=== PATIENT | male | born 1950 | race Caucasian/White ===

== ENCOUNTER 2020-10-27 16:40 | Observation (INO) | payer OTHER ==
--- OUTSIDE RECORDS SUMMARY | 2020-10-27 16:43 | XMS REPORT | Continuity of Care Document ---
:1950 Author Organization [facility] t Address [address] [place] [address] Care Team Providers Name Role Phone Erika MEDINA Primary Care Physician Erika MEDINA Attending Clinician Payers Payer Name Policy Type Policy Number Effective Date Expiration Date S ource Problems This patient has no known problems. Allergies, Adverse Reactions, Alerts Allergy Allergy Status Severity Reaction(s) Onset Inactive Treating Comm ents Source Name Type Date Date Clinician prazosin DA Active SV 2017-07 [facility] 1-20 [place] 00:00: d 00 [facility] Prazosin Propensi Active 2016-07 [place] to 0-16 [facility] adverse 00:00: st reaction 00 s to drug Family History Family Member Diagnosis Comments Start Date Stop Date Source Natural father Stroke [facility] Natural father Heart attack [facility] Natural mother Arthritis [facility] Natural mother Cancer [facility] Natural mother Heart attack [facility] Natural mother Hyperlipidemia [place] [facility] Natural mother Stroke [facility] Natural brother Heart attack [facility] Natural brother Leukemia [facility] ethodist Social History Social Habit Start Date Stop Date Quantity Comments Source Tobacco use and 2017-05-13 2017-05-13 Never used Dan ethodist exposure 00:00:00 00:00:00 Alcohol intake 2017-05-13 2017-05-13 Current drinker Rames[facility] 00:00:00 00:00:00 of alcohol (finding) Sex [birth year] Sy Nolasco ethodist 00:00:00 00:00:00 Smoking Status Start Date Stop Date Source Never smoker Sy Beckford t Medications Ordered Filled Start Stop Current Ordering Indication Dosage Frequency Signature Comments Components Source Medication Medication Date Date Medication? Clinician (SIG) Name Name finasteride Yes TK 1 T PO H nataliia (PROSCAR) 5 03-22 D [facility] mg tablet 00:00: st 00 omeprazole Yes TK 1 C PO Ho manuela (PriLOSEC) 03-22 QD. GEF Method i 20 MG 00:00: PRILOSEC. st capsule 00 amLODIPine Yes TK 1 T PO Ho griffin (NORVASC) 03-18 QD [facility] 10 mg 00:00: st tablet 00 valsartan Yes TK 1 T PO Harrison schmitd (DIOVAN) 03-18 D [facility] 320 MG 00:00: st tablet 00 Procedures Procedure Date / Time Performed Performing Clinician [facility] e US VASCULAR SCREENING 2020-03-14 11:30:00 Trung James HEART SCAN PLUS CT HEART SCAN PLUS W 2020-03-14 10:02:02 Trung James PHYSICIAN ORDER Plan of Care Planned Activity Planned Date Details Comments Source Future Scheduled 2021 INFLUENZA VACCINE Jamel quintero [facility] 00:00:00 [code = INFLUENZA VACCINE] Future Scheduled 2014 65+ PNEUMOCOCCAL Sy [facility] Test 00:00:00 VACCINE (1 of 1 - PPSV23) [code = 65+ PNEUMOCOCCAL VACCINE (1 of 1 - PPSV23)] Future Scheduled 1999 COLONOSCOPY SCREENING Ho manuela [facility] 00:00:00 [code = COLONOSCOPY SCREENING] Future Scheduled 1999 SHINGLES VACCINES (#1) H nataliia [facility] 00:00:00 [code = SHINGLES VACCINES (#1)] Future Scheduled 1967 Hepatitis C screening Ho uston [facility] Test 00:00:00 (procedure) [code = 148865125] Future Scheduled 1965 COVID-19 VACCINE (1) Harrison ston [facility] Test 00:00:00 [code = COVID-19 VACCINE (1)] Encounters Start End Encounter Admission Attending Care Care Encounter Source Date/Time Date/Time Type Type Clinicians Facility Department ID 2020-03-14 2020-03-14 Outpatient [facility] [id number] [address] [place] [address] 00:00:00 00:00:00 TRUNG [address] 2020-03-14 2020-03-14 Outpatient [facility] [id number] [place] [address] 00:00:00 00:00:00 TRUNG [address] Results Test Description Test Time Test Comments Results Result Sourc e Comments Pv vascular Interface, Radiology Harrisonana schmidt screening heart 3 Results In - Methodi st scan plus (self 12:25:00 03/14/2020 12:25 PM pay) CDT Vascular Diagnostic Laboratory Screening Report [address] [place] [address] Pat.Name: MADINA CASE Pat.ID: [id number] .Date: 03/14/2020 Refer.MD: TRUNG JAMES MD Exam Time: 10:03:00 AM Study Type:Screening Age: 8 1950,70Y Sex: MALE Sonogrphr: ADEBAYO Munoz Pat. Stat.:Outpatient Tape Vol: FE, Echo Event ID:[id number] Order ID: [id number] Reason for Study:Screening Procedures: Ankle/brachial pressures, Colorflow, Grayscale/2D, Pulsedwave Doppler S UMMARY: V ascular Screening ResultsScreening results are brief snapshots designed to detect functionalabnormal findings of carotid artery disease, abdominal aorticaneurysms (AAA), and peripheral arterial disease (PAD). Please Note: Screening results do not replace a complete vascularexamination.Ca rotid ArteryRight Internal Carotid Artery (X) Normal: No evidence of carotid artery disease. Left Internal Carotid Artery (X) Abnormal: Plaque present but no stenosis.Abdominal Aorta(X) Normal: No evidence of aneurysmal dilatation (less than 3cm).Ankle/Brachial Index(X) Normal: No evidence of peripheral arterial disease (PAD).Recommendations Your results are ABNORMAL. Please take these results to yourphysician and discuss them in further detail. If you do not have a physician you can call our [facility] to schedule an appointment at [phone].--------- -----FINDINGS:-------- ------Signed 03/14/2020 12:25 Sudhir Vail MD, RPVI SURG 4 13:07:00 ----RUN DATE: 06/14/18 [facility] - LAB *LIVE* PAGE 1 RUN TIME: 1307 Specimen Inquiry RUN USER: INTERFACE ----PATIENT: MADINA CASE LOC: [place] U #: [id number] AGE/SX: 68/M ROOM: [facility] RE06/13/18REG DR: Gopi Barnes MD : 48 BED: 1 DIS: STATUS: ADM IN TLOC: ---- SPEC #: [id number] RECD: 06/13/18 STATUS: VANESSA REMaddy #: [id number] FATMATA: 06/13/[address]: Gopi Barnes MD ENTERED: 06/13/18 SP TYPE: SURG OTHR DR: Trung James MD ORDERED: SURG PATH LVL 4 [place] [id number] [facility] [address] [place] [address] [email or web address] Trung James MD [address] [place] [id number] HISTOLOGY: TISSUE ID BLK PCS CHINO LEV PROCEDURE DISPOSITION ____ ___ ___ ___ PROSTATE, NOS A 1-10 1 PROCEDURES: SURG PATH LVL 4 (06/13/18) TISSUES: A. PROSTATE, NOS - PROSTATE CHIPS CLINICAL HISTORY BENIGN PROSTATIC HYPERPLASIA-N40.1 CPT CODES CPT CODE(S): 04186 , , , , , , FINAL DIAGNOSIS Prostate chips, TUR: BENIGN NODULAR HYPERPLASIA GROSS DESCRIPTION Prostate chips. Received in formalin are multiple irregular fragments of mcgrath-brown fibrous tissue, 12.5 x 11.0 x 1.5 cm and weighs 38.5 grams. Cash Accountant sections submitted labeled A1 - A17. /ba/pdb Grossing performed at [facility] Pathology, [address] [place] [address], [address], CONTINUED ON NEXT PAGE ----RUN DATE: 06/14/18 [facility] - LAB *LIVE* PAGE 2 RUN TIME: 1307 Specimen Inquiry RUN USER: INTERFACE ----SPEC #: [id number] PATIENT: MADINA CASE #[id number] (Continued) GROSS DESCRIPTION (Continued) [place], [place] [address]. Hardware Trainer: Des Pena M.D. MICROSCOPIC DESCRIPTION Prostate chips. Sections demonstrate a nodular proliferation of stromal tissue with cystic glands. Focal clusters of lymphocytes are seen throughout the stroma. There is no evidence of malignancy. /cm ------- Signed SIGNATURE ON FILE Donita Jacobsen 06/14/18 1307 ---- END OF REPORT
--- NOTE | 2020-10-27 17:20 | EDPHYS ---
Physician Documentation [facility] Name: Mac Carreon Age: 70 yrs Sex: Male : 1950 Arrival Date: 10/27/2020 Time: 16:41 Bed 23 Private MD: Trung James V ED Physician Gregory Estrada HPI: 10/27 17:05 This 70 yrs old Male presents to ER via Ambulatory with complaints of Chest donald Pressure, Arm Pain. 17:05 The patient or guardian reports chest pain that is located primarily in the anterior donald chest wall, bilaterally. Onset: 1 day(s) ago. The pain radiates to the right arm. Associated signs and symptoms: The patient has no apparent associated signs or symptoms. The chest pain is described as burning, a pressure. Duration: The patient or guardian reports multiple episodes, that are intermittent. Modifying factors: The symptoms are alleviated by application of supplemental oxygen, remaining still, the symptoms are aggravated by exertion. Severity of pain: At its worst the pain was moderate in the emergency department the pain has improved mildly. Historical: - Allergies: 16:47 Minipress; jd3 - Home Meds: 16:47 losartan oral oral [Active]; atorvastatin oral oral [Active]; amlodipine oral [Active]; jd3 - PMHx: 16:47 Hypertension; jd3 - PSHx: 16:47 parathyroid removal; TURP; Tonsillectomy; jd3 - Immunization history:: Adult Immunizations up to date. - Social history:: Smoking status: unknown. - Family history:: not pertinent. ROS: 17:05 Constitutional: Negative for fever, chills, and weight loss, Eyes: Negative for injury, donald pain, redness, and discharge, ENT: Negative for injury, pain, and discharge, Neck: Negative for injury, pain, and swelling, Respiratory: Negative for shortness of breath, cough, wheezing, and pleuritic chest pain, Abdomen/GI: Negative for abdominal pain, nausea, vomiting, diarrhea, and constipation, Back: Negative for injury and pain, : Negative for injury, bleeding, discharge, and swelling, MS/Extremity: Negative for injury and deformity, Skin: Negative for injury, rash, and discoloration, Neuro: Negative for headache, weakness, numbness, tingling, and seizure, Psych: Negative for depression, anxiety, suicide ideation, homicidal ideation, and hallucinations, Allergy/Immunology: Negative for hives, rash, and allergies, Endocrine: Negative for neck swelling, polydipsia, polyuria, polyphagia, and marked weight changes, Hematologic/Lymphatic: Negative for swollen nodes, abnormal bleeding, and unusual bruising. 17:05 Cardiovascular: Positive for chest pain, of the chest. Exam: 17:05 Constitutional: This is a well developed, well nourished patient who is awake, alert, donald and in no acute distress. Head/Face: Normocephalic, atraumatic. Eyes: Pupils equal round and reactive to light, extra-ocular motions intact. Lids and lashes normal. Conjunctiva and sclera are non-icteric and not injected. Cornea within normal limits. Periorbital areas with no swelling, redness, or edema. ENT: Nares patent. No nasal discharge, no septal abnormalities noted. Tympanic membranes are normal and external auditory canals are clear. Oropharynx with no redness, swelling, or masses, exudates, or evidence of obstruction, uvula midline. Mucous membranes moist. Neck: Trachea midline, no thyromegaly or masses palpated, and no cervical lymphadenopathy. Supple, full range of motion without nuchal rigidity, or vertebral point tenderness. No Meningismus. Chest/axilla: Normal chest wall appearance and motion. Nontender with no deformity. No lesions are appreciated. Cardiovascular: Regular rate and rhythm with a normal S1 and S2. No gallops, murmurs, or rubs. Normal PMI, no JVD. No pulse deficits. Respiratory: Lungs have equal breath sounds bilaterally, clear to auscultation and percussion. No rales, rhonchi or wheezes noted. No increased work of breathing, no retractions or nasal flaring. Abdomen/GI: Soft, non-tender, with normal bowel sounds. No distension or tympany. No guarding or rebound. No evidence of tenderness throughout. Back: No spinal tenderness. No costovertebral tenderness. Full range of motion. Male : Normal genitalia with no discharge or lesions. Skin: Warm, dry with normal turgor. Normal color with no rashes, no lesions, and no evidence of cellulitis. MS/ Extremity: Pulses equal, no cyanosis. Neurovascular intact. Full, normal range of motion. Neuro: Awake and alert, GCS 15, oriented to person, place, time, and situation. Cranial nerves II-XII grossly intact. Motor strength 5/5 in all extremities. Sensory grossly intact. Cerebellar exam normal. Normal gait. Psych: Awake, alert, with orientation to person, place and time. Behavior, mood, and affect are within normal limits. 17:17 ECG was reviewed by the Attending Physician. [facility] Vital Signs: 16:48 BP 187 / 91; Pulse 75; Resp 17 S; Temp 97.8(TE); Pulse Ox 99% on R/A; Weight 92.99 kg jd3 (R); Height 5 ft. 10 in. (177.80 cm) (R); Pain 5/10; 17:56 BP 174 / 81; Pulse 60; Resp 18 S; Pulse Ox 100% on R/A; ca1 18:56 BP 140 / 75; Pulse 58; Resp 20 S; Pulse Ox 100% on R/A; ca1 19:40 BP 143 / 78; Pulse 48; Resp 15; Pulse Ox 97% ; rr5 16:48 Body Mass Index 29.41 (92.99 kg, 177.80 cm) jd3 MDM: 16:50 Patient medically screened. donald 17:08 Differential diagnosis: abnormal EKG, acute myocardial infarction, anxiety, coronary donald artery disease congestive heart failure pancreatitis, pericarditis, stable angina, unstable angina. HEART Score: ECG: Non specific repolarization disturbance / LBTB / PM (1), Age: > or = 65 years (2), Risk Factors: > or = 3 Risk factors for atherosclerotic disease (2), [Hypercholesterolemia] [Hypertension] [+ Family HX] [Obesity] Troponin: < or = 1 x Normal Limit (0). The patient was given aspirin in the Emergency Department. The patient's deep vein thrombosis risk score was calculated as follows: Total Score: 0. This patient was found to be at low risk for a deep vein thrombosis by using the Well's assessment criteria. The patient's pulmonary embolism risk score was calculated as follows: Total Score: 0-2 points. This patient was found to be at low risk for a pulmonary embolism by using the Well's assessment criteria. ARTURO Risk Score: 1 - patient's age is greater or equal to 65 years, 1 - Three or more CAD risk factors, 1- Known CAD, 1 - ASA use in past 7 days, 1 - Recent [<24hrs] Severe Angina, TOTAL SCORE = 5. Data reviewed: vital signs, nurses notes, lab test result(s), EKG, radiologic studies, plain films. Data interpreted: bus driver/monitor: rate is 75 beats/min, rhythm is regular, Pulse oximetry: on room air is 99 %. Test interpretation: by ED physician or midlevel provider: ECG, plain radiologic studies. Counseling: I had a detailed discussion with the patient and/or guardian regarding: the historical points, exam findings, and any diagnostic results supporting the discharge/admit diagnosis, lab results, radiology results, the need for further work-up and treatment in the hospital. 10/27 17:05 Order name: Basic Metabolic Panel donald 10/27 17:05 Order name: CBC with Diff 10/27 17:05 Order name: LFT's; Complete Time: 17:53 donald 10/27 17:05 Order name: Magnesium; Complete Time: 17:53 donald 10/27 17:05 Order name: NT PRO-BNP; Complete Time: 17:53 donald 10/27 17:05 Order name: PT-INR; Complete Time: 20:52 donald 10/27 17:05 Order name: Troponin (emerg Dept Use Only); Complete Time: 17:53 donald 10/27 17:05 Order name: Lipase; Complete Time: 17:53 donald 10/27 17:05 Order name: Basic Metabolic Panel; Complete Time: 17:53 EDMS 10/27 17:05 Order name: CBC with Automated Diff; Complete Time: 20:52 EDMS 10/27 17:14 Order name: COVID-19 : Document "Date of Symptom Onset" if Symptomatic. ca1 10/27 17:33 Order name: Urine Dipstick--Ancillary (enter results); Complete Time: 17:53 eb 10/27 18:25 Order name: SARS-COV-2 RT PCR; Complete Time: 20:52 EDMS 10/27 17:05 Order name: XRAY Chest (1 view); Complete Time: 20:52 donald 10/27 17:05 Order name: EKG; Complete Time: 17:06 donald 10/27 17:05 Order name: Cardiac monitoring; Complete Time: 17:09 donald 10/27 17:05 Order name: EKG - Nurse/Tech; Complete Time: 17:09 donald 10/27 17:23 Order name: CONS Physician Consult [facility] 10/27 23:33 Order name: Troponin I [facility] 10/28 03:31 Order name: Troponin I [facility] 10/28 04:58 Order name: CBC with Automated Diff EDMT 10/28 05:19 Order name: Basic Metabolic Panel [facility] 10/27 17:05 Order name: IV Saline Lock; Complete Time: 17:09 [facility] 10/27 17:05 Order name: Labs collected and sent; Complete Time: 17:09 [facility] 10/27 17:05 Order name: O2 Per Protocol; Complete Time: 17:13 [facility] 10/27 17:05 Order name: O2 Sat Monitoring; Complete Time: 17:13 [facility] 10/27 17:05 Order name: Urine Dipstick-Ancillary (obtain specimen); Complete Time: 17:32 [facility] EC:17 Rate is 64 beats/min. Rhythm is regular. QRS [place] is Normal. [place] interval is normal. QRS donald interval is normal. QT interval is normal. No Q waves. T waves are Normal. ST Segment is depressed in leads I, aVL. Clinical impression: Cardiac ischemia. Interpreted by me. Reviewed by me. Administered Medications: 17:34 Drug: Aspirin Chewable Tablet 324 mg Route: PO; aa5 21:48 Follow up: Response: No adverse reaction rv 17:34 Drug: Pepcid (famotidine) 20 mg Route: IVP; Site: right antecubital; aa5 21:48 Follow up: Response: No adverse reaction rv 17:35 Drug: Lopressor (metoprolol TARTRATE) 50 mg Route: PO; aa5 21:48 Follow up: Response: No adverse reaction rv 17:35 Drug: Lovenox (enoxaparin) 1 mg/kg Route: Sub-Q; Site: right lower abdomen; aa5 21:48 Follow up: Response: No adverse reaction rv 17:35 Drug: PlaVIX (clopidogrel) 300 mg Route: PO; aa5 21:48 Follow up: Response: No adverse reaction rv 17:40 Not Given (Patient Refused): morphine 2 mg IVP once; (PAIN>8) RASS on ADMN: Combtv4, aa5 Very Agttd3, Agttd2, Rstlss1, AlertClm0, Drwsy-1, LtSdtn-2, ModSdtn-3, DpSdtn-4, UnArsble-5 x2 17:40 Not Given (Patient Refused): Zofran (Ondansetron) 4 mg IVP once; over 2 minutes aa5 Disposition: 10/27/20 17:20 Hospitalization ordered by Trung James for Observation. Preliminary diagnosis are Chest pain, unspecified, Angina pectoris, Essential (primary) hypertension. - Bed requested for [facility] ER HOLD. - Status is Observation. ss - Condition is Fair. - Problem is new. - Symptoms have improved. Signatures: Dispatcher [employer] EDMT Gregory Estrada MD MD cha Ballard, Brenda, RN RN bb Deirdre Sullivan RN RN aa5 Soni Thomas RN RN ss Saurabh Govea, HANNAH-C TIRE DEBEADER-Cla1 Mario Cruz RN RN jd3 Elvin Coyne RN rv Corrections: (The following items were deleted from the chart) 17:35 17:14 CORONAVIRUS ordered. EDMT EDMT 21:39 17:20 Hospitalization Ordered by Trung James MD for Observation. Preliminary diagnosis bb is Chest pain, unspecified; Angina pectoris; Essential (primary) hypertension. Bed requested for Telemetry/MedSurg (observation). Status is Observation. Condition is Fair. Problem is new. Symptoms have improved. [facility] 10/28 11:51 10/27 21:39 10/27/2020 17:20 Hospitalization Ordered by Trung James MD for ss Observation. Preliminary diagnosis is Chest pain, unspecified; Angina pectoris; Essential (primary) hypertension. Bed requested for [facility] ER HOLD. Status is Observation. Condition is Fair. Problem is new. Symptoms have improved. bb
--- NOTE | 2020-10-27 17:20 | ER ---
Nurse's Notes [facility] Name: Mac Carreon Age: 70 yrs Sex: Male : 1950 Arrival Date: 10/27/2020 Time: 16:41 Bed 23 Private MD: Trung James V Diagnosis: Chest pain, unspecified;Angina pectoris;Essential (primary) hypertension Presentation: 10/27 16:43 Chief complaint: Patient states: "I am wanting to get my heart looked up. I have been jd3 having chest pain and right arm pain since Wednesday.". Coronavirus screen: At this time, the client does not indicate any symptoms associated with coronavirus-19. Ebola Screen: Patient negative for fever greater than or equal to 101.5 degrees Fahrenheit, and additional compatible Ebola Virus Disease symptoms. Initial Sepsis Screen: Does the patient meet any 2 criteria? No. Patient's initial sepsis screen is negative. Does the patient have a suspected source of infection? No. Patient's initial sepsis screen is negative. Risk Assessment: Do you want to hurt yourself or someone else? Patient reports no desire to harm self or others. Onset of symptoms was October 25, 2020. 16:43 Method Of Arrival: Ambulatory j 16:43 Acuity: GRISEL 3 jd3 Historical: - Allergies: 16:47 Minipress; jd3 - Home Meds: 16:47 losartan oral oral [Active]; atorvastatin oral oral [Active]; amlodipine oral [Active]; jd3 - PMHx: 16:47 Hypertension; jd3 - PSHx: 16:47 parathyroid removal; TURP; Tonsillectomy; jd3 - Immunization history:: Adult Immunizations up to date. - Social history:: Smoking status: unknown. - Family history:: not pertinent. Screenin:00 Abuse screen: Denies threats or abuse. Denies injuries from another. Nutritional ca1 screening: No deficits noted. Tuberculosis screening: No symptoms or risk factors identified. Fall Risk IV access (20 points). Assessment: 17:00 General: Appears in no apparent distress. comfortable, Behavior is calm, cooperative, ca1 appropriate for age. Pain: Complains of pain in chest Pain radiates to left arm Pain currently is 6 out of 10 on a pain scale. Quality of pain is described as pressure, Pain began 2-3 days ago. Is intermittent. Neuro: Level of Consciousness is awake, alert, obeys commands, Oriented to person, place, time, situation. Cardiovascular: Heart tones S1 S2 present Capillary refill is > 3 seconds Patient's skin is warm and dry. Rhythm is sinus rhythm. Respiratory: Airway is patent Respiratory effort is even, unlabored, Respiratory pattern is regular, symmetrical, Breath sounds are clear bilaterally. Respiratory: Reports shortness of breath. GI: Abdomen is flat, non-distended, Bowel sounds present X 4 quads. Abd is soft and non tender X 4 quads. : No signs and/or symptoms were reported regarding the genitourinary system. : No signs and/or symptoms were reported regarding the genitourinary system. EENT: No signs and/or symptoms were reported regarding the EENT system. Derm: Skin is intact, is healthy with good turgor, Skin is pink, warm \\T\\ dry. Musculoskeletal: Circulation, motion, and sensation intact. Capillary refill < 3 seconds. 17:40 Reassessment: Patient is alert, oriented x 3, equal unlabored respirations, skin aa5 warm/dry/pink. Patient states feeling better. Pt refused morphine administration at this time, pt refused warm blanket. Pt appears comfortable sitting up in bed. Call barton within reach. . 18:56 Reassessment: Patient appears in no apparent distress at this time. ca1 Vital Signs: 16:48 BP 187 / 91; Pulse 75; Resp 17 S; Temp 97.8(TE); Pulse Ox 99% on R/A; Weight 92.99 kg jd3 (R); Height 5 ft. 10 in. (177.80 cm) (R); Pain 5/10; 17:56 BP 174 / 81; Pulse 60; Resp 18 S; Pulse Ox 100% on R/A; ca1 18:56 BP 140 / 75; Pulse 58; Resp 20 S; Pulse Ox 100% on R/A; ca1 19:40 BP 143 / 78; Pulse 48; Resp 15; Pulse Ox 97% ; rr5 16:48 Body Mass Index 29.41 (92.99 kg, 177.80 cm) jd3 ED Course: 16:41 Patient arrived in ED. as 16:41 Trung James MD is Private Physician. as 16:45 Triage completed. jd3 16:45 Gregory Estrada MD is Attending Physician. donald 16:48 Arm band placed on. jd3 16:51 Rozina Esquivel, RN is Primary Nurse. ca1 17:08 CBC with Automated Diff Sent. mh5 17:09 Basic Metabolic Panel Sent. mh5 17:09 Lipase Sent. mh5 17:09 Basic Metabolic Panel Sent. mh5 17:10 CBC with Diff Sent. mh5 17:10 LFT's Sent. mh5 17:10 Magnesium Sent. mh5 17:10 NT PRO-BNP Sent. mh5 17:10 PT-INR Sent. mh5 17:10 Troponin (emerg Dept Use Only) Sent. mh5 17:11 Patient has correct armband on for positive identification. Placed in gown. Bed in low mh5 position. Call light in reach. Side rails up X 1. Pillow given. classroom monitor on. Pulse ox on. NIBP on. 17:12 No provider procedures requiring assistance completed. Initial lab(s) drawn, by ne, ca1 sent to lab. Inserted saline lock: 20 gauge in right antecubital area, using aseptic technique. Blood collected. Patient maintains SpO2 saturation greater than 95% on room air. 17:15 COVID-19 : Document "Date of Symptom Onset" if Symptomatic. Sent. 5 17:16 EKG done, by ED staff, reviewed by Gregory Estrada MD COVID swab sent to lab. 5 17:19 Trung James MD is Hospitalizing Provider. [facility] 17:30 XRAY Chest (1 view) In Process Unspecified. EDMS 17:32 Urine collected: clean catch specimen, clear. mh5 21:47 IV is patent, with fluids infusing freely, Patient admitted, IV remains in place. rv Administered Medications: 17:34 Drug: Aspirin Chewable Tablet 324 mg Route: PO; aa5 21:48 Follow up: Response: No adverse reaction rv 17:34 Drug: Pepcid (famotidine) 20 mg Route: IVP; Site: right antecubital; aa5 21:48 Follow up: Response: No adverse reaction rv 17:35 Drug: Lopressor (metoprolol TARTRATE) 50 mg Route: PO; aa5 21:48 Follow up: Response: No adverse reaction rv 17:35 Drug: Lovenox (enoxaparin) 1 mg/kg Route: Sub-Q; Site: right lower abdomen; aa5 21:48 Follow up: Response: No adverse reaction rv 17:35 Drug: PlaVIX (clopidogrel) 300 mg Route: PO; aa5 21:48 Follow up: Response: No adverse reaction rv 17:40 Not Given (Patient Refused): morphine 2 mg IVP once; (PAIN>8) RASS on ADMN: Combtv4, aa5 Very Agttd3, Agttd2, Rstlss1, AlertClm0, Drwsy-1, LtSdtn-2, ModSdtn-3, DpSdtn-4, UnArsble-5 x2 17:40 Not Given (Patient Refused): Zofran (Ondansetron) 4 mg IVP once; over 2 minutes aa5 Outcome: 17:20 Decision to Hospitalize by Provider. donald 21:47 Admitted to ER Hold. [facility]. rv 21:47 Condition: good 21:47 Instructed on the need for admit. 10/28 11:51 Patient left the ED. Signatures: Dispatcher [employer] EDGregory Pettit MD MD cha Martinez, Amelia as Calderon, Audri, RN RN aa5 Soni Thomas RN RN ss Martinez, Maria Mario Alcantara RN RN bebed3 Elvin Coyne RN RN Rory Carmona, RN RN rr5 Rozina Esquivel RN RN ca1 Corrections: (The following items were deleted from the chart) 10/27 17:35 17:15 CORONAVIRUS drawn and sent. [facility] INGEDC
[2020-10-27 17:22] LABS: Absolute Lymphocytes (CBC) 2.4 K/uL (0.7-4.9); Hematocrit 43.7 % (39.6-49.0); Lymphocytes % 20.5 % (15.3-44.8); MPV 8.9 fL (7.6-11.3); RBC Red Blood Cell Count 5.08 M/uL (4.33-5.43)
[2020-10-27 17:35] LABS: Protime INR 1.03
[2020-10-27 17:40] LABS: Urine Blood NEGATIVE (Negative); Urine Glucose NEGATIVE (Negative); Urine Protein NEGATIVE (Negative); Urine Specific Gravity 1.025 (1.005-1.030)
[2020-10-27 17:45] LABS: ALT/SGPT 26 U/L (12-78); AST/SGOT 19 U/L (15-37); Alkaline Phosphatase 86 U/L (45-117); BUN Blood Urea Nitrogen 21 mg/dL (7-18); Bicarbonate 26 mmol/L (21-32); Bilirubin Direct < 0.1 mg/dL (0-0.2); Bilirubin Total 0.3 mg/dL (0.2-1.0); Glucose Level 95 mg/dL (74-106); Lipase 217 U/L (73-393); Magnesium 2.6 mg/dL (1.8-2.4); NT PRO-BNP 27 pg/mL (<125); Potassium 3.7 mmol/L (3.5-5.1); Protein, Total 7.4 g/dL (6.4-8.2); Sodium Level 142 mmol/L (136-145); Troponin (Emerg Dept Use Only) < 0.02 ng/mL (0.0-0.045)
[2020-10-27] MEDS ORDERED: MORPHINE 2 MG/ML SYR ONE (17:47)
[2020-10-27] MEDS ORDERED: METOPROLOL TAR 50 MG TAB ONE (17:47)
[2020-10-27] MEDS ORDERED: ASPIRIN 81 MG CHEWABLE TABLET ONE (17:47)
[2020-10-27] MEDS ORDERED: FAMOTIDINE 20 MG/2 ML VIAL IV ONE ×2 (17:48→23:25)
[2020-10-27] MEDS ORDERED: CLOPIDOGREL 75 MG TABLET ONE (17:48)
[2020-10-27] MEDS ORDERED: ENOXAPARIN 100 MG/ML SYR SQ ONE (17:48)
[2020-10-27] MEDS ORDERED: ONDANSETRON 4 MG/2 ML VIAL ONE (17:48)
--- NOTE | 2020-10-27 18:34 | RAD REPORT ---
EXAM DESCRIPTION: Jen Single View10/27/2020 5:30 pm CLINICAL HISTORY: Chest pain COMPARISON: 2008 FINDINGS: The lungs appear clear of acute infiltrate. The heart is normal size IMPRESSION: No acute abnormalities displayed
[2020-10-27 22:08] VITALS: BMI 29.4
[2020-10-27] MEDS ORDERED: METOPROLOL TAR 25 MG TAB PO SCH (22:39)
[2020-10-27] MEDS ORDERED: MORPHINE 4 MG/ML SYR IV PRN (22:39)
[2020-10-27] MEDS: FAMOTIDINE 20 MG/2 ML VIAL IV SCH (22:39)
[2020-10-27] MEDS ORDERED: ACETAMINOPHEN 325 MG TABLET PO PRN (22:39)
[2020-10-27] MEDS ORDERED: ONDANSETRON 4 MG/2 ML VIAL IV PRN (22:39)
[2020-10-27] MEDS ORDERED: METOPROLOL TAR 25 MG TAB ONE (23:25)
[2020-10-28 04:55] LABS: Absolute Lymphocytes (CBC) 2.8 K/uL (0.7-4.9); Basophils % 0.6 % (0-1.3); Hematocrit 40.8 % (39.6-49.0); Lymphocytes % 31.1 % (15.3-44.8); RBC Red Blood Cell Count 4.76 M/uL (4.33-5.43)
[2020-10-28 05:19] LABS: Potassium 4.1 mmol/L (3.5-5.1)
[2020-10-28] MEDS: FAMOTIDINE 20 MG/2 ML VIAL IV SCH (08:26)
[2020-10-28] MEDS ORDERED: FAMOTIDINE 20 MG TAB ONE (08:38)
[2020-10-28] MEDS ORDERED: ASPIRIN EC 81 MG TAB PO ONE (08:38)
[2020-10-28] MEDS ORDERED: CLOPIDOGREL 75 MG TABLET ONE (08:38)
[2020-10-28 08:53] VITALS: BP 135/74; TEMP 97.8
[2020-10-28] MEDS ORDERED: CLOPIDOGREL 75 MG TABLET PO SCH (09:00)
[2020-10-28] MEDS ORDERED: ASPIRIN EC 81 MG TAB PO SCH (09:00)
[2020-10-28 10:20] VITALS: O2SAT 96
[2020-10-28] MEDS ORDERED: FUROSEMIDE 40 MG/4 ML VIAL ONE (17:22)
--- NOTE | 2020-10-28 21:04 | P.SSS ---
Patient History Date of Service: 10/28/20 Reason for admission: CHEST HEAVIENESS History of Present Illness: MR. CASE HAD HIGH CALCIUM SCORE AND SO HAD STRESS TEST THAT WAS NEGATIVE ABOUT 6 MONTHS AGO. HE DID NOT OF WORK WITH HIS HANDS AND HAD LOT OF HAND PAIN ON R SIDE. 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 HE REPORTS TO ER. HE IS PAINFREE NOW. HE HAS NORMAL EKG AND NEGATIVE CARDIAC ENZYMES. HE WAS SEEN BY DR BHAKTA AND SAID THAT HE ALSO HAD GERD. HE WILL TAKE PRILSOEC DAILY AND IF NOT BETTER WILL GO SEE DR BHAKTA TO GET CATH DONE. Allergies No Known Allergies Allergy (Unverified 12/04/12 21:50) Home medications list reviewed: Yes - Past Medical/Surgical History Has patient received pneumonia vaccine in the past: Yes -: HTN -: CAD - Family History Father -: Heart disease Mother -: Heart disease, Stroke - Social History Smoking Status: Never smoker Alcohol use: No CD- Drugs: No Caffeine use: Yes Place of Residence: Home Review of Systems 10-point ROS is otherwise unremarkable Physical Examination - Vital Signs Temperature: 97.8 F Blood Pressure: 135/74 Pulse: 48 Respirations: 18 Pulse Ox (%): 100 - Physical Exam General: Alert, In no apparent distress HEENT: Atraumatic, PERRLA, Mucous membr. moist/pink, EOMI, Sclerae nonicteric Neck: Supple, 2+ carotid pulse no bruit, No LAD, Without JVD or thyroid abnormality Respiratory: Clear to auscultation bilaterally, Normal air movement Cardiovascular: Regular rate/rhythm, Normal S1 S2 Gastrointestinal: Normal bowel sounds, No tenderness Musculoskeletal: No tenderness Integumentary: No rashes Neurological: Normal gait, Normal speech, Normal strength at 5/5 x4 extr, Normal tone, Normal affect Lymphatics: No axilla or inguinal lymphadenopathy - Diagnosis (Problem(s)) (1) Atypical chest pain Status: Acute Plan: HPI WILL FU WITH DR. BHAKTA HE SAID HE HAS ACHES ON STATINS BUT EXPLAINED THAT IT IS VERY IMPORTANT THAT HE KEEPS TAKING IT. HE TAKES COQ 10 DAILY. (2) HTN (hypertension) Status: Chronic Qualifiers: Hypertension type: essential hypertension Qualified Code(s): I10 - Essential (primary) hypertension - Disposition Disposition: ROUTINE DISCHARGE Condition: GOOD
--- NOTE | 2020-10-29 14:46 | CON ---
Date of Consultation: 10/28/2020 Reason For Consultation: Chest pain. History Of Present Illness: Mr. Carreon is a 70-year-old male, has a history of parathyroidectomy, hy pertension, dyslipidemia, gastroesophageal reflux disease. Has had negative cardiac workup in the [facility]. Came in with chest pain, left arm radiation, right arm radiation, shortness of breath. No PND, orthopnea, pedal edema, palpitation, or syncope. Denied any nausea, vomiting, or diaphoresis. Denie d fever or chills or cough. He has already ruled out for an AL. Symptoms have been going on for abo ut 3 days. Past Medical History: Include hypertension, dyslipidemia, gastroesophageal reflux disease, status po st thyroid removal. Allergies: NONE. Review of Systems: Negative. Social History: Negative. Family History: Negative. Medications: At home include losartan, Norvasc, and Lipitor. Physical Examination: Vital Signs: Stable, afebrile. General: No acute distress. HEENT: Negative. Neck: Supple with no bruit. Chest: Clear. Cardiac: Revealed a regular rhythm and rate. No murmurs, gallops, or rubs. Abdomen: Benign. Extremities: Revealed no clubbing, cyanosis, or edema. Diagnostic Data: All within normal limits. Impression And Plan: The patient has a history of hypertension, dyslipidemia, gastroesophageal reflu x disease. The location of the pain I think is more consistent with gastroesophageal reflux disease, but certainly could be cardiac. He has had negative cardiac workup in the past. We will continue t he losartan, Norvasc and Lipitor. I will start him on Prilosec on a daily basis. I think if the sym ptoms persist, I will plan to do a heart catheterization rather than repeating noninvasive studies. I will see him in the office in 1 month. The case was discussed with Dr. James. The patient can go home today. BOB/CELIA Voice ID: [id number] Report ID: [id number]
[2020-10-29 14:49] LABS: Urine Blood Negative (Negative); Urine Glucose Negative (Negative); Urine Protein Negative (Negative); Urine Specific Gravity 1.025 (1.005-1.030)
== END 2020-10-28 15:00 | disposition home or self-care (01) ==
LOC: ER 16:40 → ERHOLD 17:21
PROVIDERS: ADMIT Internal Medicine; ATTEND Internal Medicine
DX: R07.89 Other chest pain (principal); I10 Essential (primary) hypertension; I25.10 Atherosclerotic heart disease of native coronary artery without angina pectoris; K21.9 Gastro-esophageal reflux disease without esophagitis; E78.5 Hyperlipidemia, unspecified; Z20.822 Contact with and (suspected) exposure to COVID-19
CPT/HCPCS: 93005 ×2; 85025 ×2; 80048 ×2; 36415; 83735; 85610; 80076; 81003 ×2; 84484 ×3; 83690; 83880; 71045; 96372; 96374; U0003; J1940; J1650; G0378 ×3; 99285; J2270; J2405

== ENCOUNTER 2024-01-10 12:37 | Emergency (ER) | payer OTHER ==
[2024-01-10] MEDS ORDERED: HYDROCODONE/APAP 7.5/325 MG TAB ONE (13:02)
--- NOTE | 2024-01-10 13:42 | RAD REPORT ---
EXAM DESCRIPTION: CT - Thorax Wo Con CLINICAL HISTORY: Chest pain Chest pain;Blunt chest trauma COMPARISON: <Comparisons> FINDINGS: The lungs are clear. No pleural thickening or pleural effusion. No pneumothorax. Moderate hiatal hernia. No axillary, mediastinal or hilar adenopathy. No concerning bony finding. No gross upper abdominal finding. All CT scans are performed using dose optimization technique as appropriate and may include automated exposure control or mA/KV adjustment according to patient size. IMPRESSION: No acute abnormality is detected.
--- NOTE | 2024-01-10 13:44 | RAD REPORT ---
EXAM DESCRIPTION: CT - Abdomen Wo Contrast CLINICAL HISTORY: chest/abd trauma Abdominal pain COMPARISON: <Comparisons> TECHNIQUE All CT scans are performed using dose optimization technique as appropriate and may includ e automated exposure control or mA/KV adjustment according to patient size. FINDINGS: The lower lung veloz are clear. Moderate hiatal hernia. The liver, spleen, pancreas, adrenal glands and kidneys are within normal limits. No free fluid, bowel obstruction or free air. Moderate stool present throughout the colon. Diverticul osis coli without diverticulitis. No significant adenopathy in the abdomen. Moderate lumbar degenerative changes. No acute fracture seen. IMPRESSION: No acute abnormality is detected.
--- NOTE | 2024-01-10 13:48 | EDPHYS ---
Physician Documentation [facility] Name: Mac Carreon Age: 73 yrs Sex: Male : 1950 Arrival Date: 01/10/2024 Time: 12:37 Bed 12 Private MD: ED Physician Luis Vale HPI: 01/09 13:00 This 73 yrs old Male presents to ER via Ambulatory with complaints of Fall Injury - on sb4 01/08/24. 13:00 Patient states that he fell out of the golf cart yesterday onto his left side. He is sb4 complaining of pain in his left ribs and abdomen. He is concerned about his spleen. He states the pain was minimal yesterday but has gotten worse today. Says minimal increase in pain with inspiration. No reported shortness of breath. No bruising noted, no deformity or flail chest. No head trauma, no LOC, not on blood thinners. Historical: - Allergies: 12:53 Minipress; ll1 - PMHx: 12:53 Hypertension; ll1 - PSHx: 12:53 TURP (Hypertension); thyroid surgery (Hypertension); ll1 - Immunization history:: Adult Immunizations up to date. - Infectious Disease History:: Denies. - Immunization history: Last tetanus immunization: unknown. - Social history:: Smoking status: Patient denies any tobacco usage or history of. ROS: 13:00 Constitutional: Negative for fever, chills, and weight loss, sb4 13:00 MS/extremity: Positive for Left-sided chest wall pain, 13:00 All other systems are negative, Exam: 13:00 Constitutional: This is a well developed, well nourished patient who is awake, alert, sb4 and in no acute distress. Head/Face: Normocephalic, atraumatic. Eyes: Extra-ocular motions intact. Periorbital areas with no swelling, redness, or edema. ENT: Mucous membranes moist. Cardiovascular: Regular rate and rhythm with a normal S1 and S2. Respiratory: Lungs have equal breath sounds bilaterally, clear to auscultation and percussion. No rales, rhonchi or wheezes noted. No increased work of breathing, no retractions or nasal flaring. Abdomen/GI: Soft, non-tender, no distension. Skin: Warm, dry with normal turgor. Normal color with no rashes, no lesions, and no evidence of cellulitis. 13:00 Chest/axilla: Inspection: normal, Palpation: tenderness, that is mild, of the left lateral anterior chest, that partially reproduces the patient's complaints, Vital Signs: 12:52 BP 156 / 81; Pulse 56; Resp 17; Temp 97.4; Pulse Ox 98% ; Weight 92.08 kg; Height 5 ft. ll1 10 in. ; Pain 5/10; 14:01 BP 126 / 74; Pulse 54; Resp 16; Temp 98.3; Pulse Ox 100% ; Pain 4/10; al5 12:52 Body Mass Index 29.13 (92.08 kg, 177.8 cm) ll1 12:52 Pain Scale: Adult ll1 14:01 Pain Scale: Adult al5 [place] Score: 14:02 Eye Response: spontaneous(4). Motor Response: obeys commands(6). Verbal Response: al5 oriented(5). Total: 15. Trauma Score (Adult): 14:02 Eye Response: spontaneous(1); Verbal Response: oriented(1); Motor Response: obeys al5 commands(2); Systolic BP: > 89 mm Hg(4); Respiratory Rate: 10 to 29 per min(4); Som Score: 15; Trauma Score: 12 MDM: 12:44 Patient medically screened. sb4 13:47 Data reviewed: vital signs, nurses notes, radiologic studies, and as a result, I will sb4 discharge patient. Counseling: I had a detailed discussion with the patient and/or guardian regarding the historical points, exam findings, and any diagnostic results supporting the discharge/admit diagnosis, radiology results, to return to the emergency department if symptoms worsen or persist or if there are any questions or concerns that arise at home. 07 13:00 Order name: Chest Wo Con CT; Complete Time: 13:44 sb4 07 13:02 Order name: Abdomen Wo Contrast; Complete Time: 13:44 EDMS Administered Medications: 13:04 Drug: Hydrocodone-Acetaminophen PO (7.5 mg-325 mg) 1 tabs PO once Route: PO; aa5 13:56 Follow up: Response: No adverse reaction al5 Disposition: 13:07 I was immediately available on-site in the Emergency Department for consultation in the ms3 care of the patient. Disposition Summary: 01/10/24 13:47 Discharge Ordered Notes: Location: Home sb4 Problem: new sb4 Symptoms: are unchanged sb4 Condition: Stable sb4 Diagnosis - Contusion of front wall of thorax sb4 Followup: sb4 - With: Emergency Department - When: As needed - Reason: Trouble breathing, Worsening of condition Discharge Instructions: - Discharge Summary Sheet sb4 - Rib Contusion sb4 Forms: - Patient Portal Instructions sb4 - Leadership Thank You Letter sb4 Signatures: Dispatcher [employer] EDMS Deirdre Sullivan, RN RN aa5 Perez Olivas RN RN ll1 Luis Vale, DO DO ms3 Naz Royal PA-C PASanto sb4 Madelaine Corcoran RN RN al5 Corrections: (The following items were deleted from the chart) 13:00 13:00 Thorax Wo Con+CT.RAD.BRZ ordered. EDMS EDMS
--- NOTE | 2024-01-10 13:48 | ER ---
Nurse's Notes [facility] Name: Mac Carreon Age: 73 yrs Sex: Male : 1950 Arrival Date: 01/10/2024 Time: 12:37 Bed 12 Private MD: Diagnosis: Contusion of front wall of thorax Presentation: 01/09 12:52 Chief complaint: Patient states: L sided trunk pain since falling out his golf cart ll1 01/07. No head injury or LOC. Coronavirus screen: Client denies travel out of the [place] in the last 14 days. At this time, the client does not indicate any symptoms associated with coronavirus-19. Ebola Screen: Patient denies travel to an Ebola-affected area in the 21 days before illness onset. Initial Sepsis Screen: Does the patient meet any 2 criteria? No. Patient's initial sepsis screen is negative. Does the patient have a suspected source of infection? No. Patient's initial sepsis screen is negative. Risk Assessment: Do you want to hurt yourself or someone else? Patient reports no desire to harm self or others. Onset of symptoms was January 08, 2024. 12:52 Method Of Arrival: Ambulatory ll1 12:52 Acuity: GRISEL 4 ll1 14:02 Care prior to arrival: None. Mechanism of Injury: Fall fell from golf cart onto al5 concrete. Trauma event details: Injury occurred in the [facility], Injury occurred: in a recreational area. Injury occurred: January 08, 2024. Triage Assessment: 12:54 General: Appears uncomfortable, Behavior is calm, cooperative, appropriate for age. ll1 Pain: Complains of pain in L trunk Quality of pain is described as aching. Neuro: No deficits noted. Cardiovascular: Reports L trunk pain under L ribs. GI: Reports nausea. Historical: - Allergies: 12:53 Minipress; ll1 - PMHx: 12:53 Hypertension; ll1 - PSHx: 12:53 TURP (Hypertension); thyroid surgery (Hypertension); ll1 - Immunization history:: Adult Immunizations up to date. - Infectious Disease History:: Denies. - Immunization history: Last tetanus immunization: unknown. - Social history:: Smoking status: Patient denies any tobacco usage or history of. Screenin:49 Abuse screen: Denies threats or abuse. Denies injuries from another. Tuberculosis al5 screening: No symptoms or risk factors identified. 13:52 [facility] ED Fall Risk Assessment (Adult) History of falling in the last 3 months, al5 including since admission No falls in past 3 months (0 pts) Confusion or Disorientation No (0 pts) Intoxicated or Sedated No (0 pts) Impaired Gait No (0 pts) Mobility Assist Device Used No (0 pt) Altered Elimination No (0 pt) Score/Fall Risk Level 0 - 2 = Low Risk Oriented to surroundings, Maintained a safe environment, Hourly rounding (assess needs \T\ fall precautionary measures) done. Nutritional screening: No deficits noted. Primary Survey: 13:47 NO uncontrolled hemorrhage observed. A: The client is awake and alert. The airway is al5 patent. The client is alert. Airway: patent, Trachea midline. Breathing/Chest: Spontaneous respiratory effort, equal unlabored respirations, breath sounds clear bilaterally, regular pattern, symmetrical chest rise and fall. Respiratory effort: spontaneous, Respiratory pattern: regular. Circulation: No external hemorrhage present. Regular and strong central pulse, skin warm/dry/normal color. Skin color: pink, Skin temperature: warm, dry. Disability Pupils are equal, round, reactive to light and accommodation. Client is alert. Exposure/Environment: All clothing and personal items were removed. Forensic evidence collection is not deemed to be indicated at this time. Items placed in patient belonging bag. A warming method has been applied: A warm blanket has been provided to the patient. 14:03 Reassessment Alertness and Airway: Awake and alert. The airway is patent. Breathing: al5 Spontaneous respiratory effort, equal unlabored respirations, breath sounds clear bilaterally, regular pattern with symmetrical chest rise and fall. Circulation: No external hemorrhage noted. Regular and strong central pulse, skin warm/dry/normal color. Disability: Pupils Pupils are equal, round, reactive to light and accomodation. Secondary Survey: 13:47 HEENT: No deficits noted. Gastrointestinal: Abdomen is flat, Other tender LUQ Palpation al5 Patient reports tenderness LUQ. : No deficits noted. No signs and/or symptoms were reported regarding the genitourinary system. Musculoskeletal: No deficits noted. No signs and/or symptoms reported regarding the musculoskeletal system. Injury Description: [place] Assessment: 13:04 Reassessment: Patient is alert, oriented x 3, equal unlabored respirations, skin aa5 warm/dry/pink. 13:50 General: Appears in no apparent distress. Behavior is calm, cooperative. Pain: al5 Complains of pain in left upper quadrant Pain currently is 6 out of 10 on a pain scale. Pain began wednesday Is continuous. Neuro: No deficits noted. Level of Consciousness is awake, alert, obeys commands, Oriented to person, place, time, situation, Gait is steady, Speech is normal, Facial symmetry appears normal. Cardiovascular: No deficits noted. Patient's skin is warm and dry. Respiratory: No deficits noted. Airway is patent Trachea midline Respiratory effort is even, unlabored, Respiratory pattern is regular, symmetrical. GI: Abdomen is flat, Abd is soft X 4 quads Abdomen is tender to palpation in left upper quadrant. : No deficits noted. No signs and/or symptoms were reported regarding the genitourinary system. EENT: No deficits noted. No signs and/or symptoms were reported regarding the EENT system. Derm: No deficits noted. Skin is intact, Skin is pink, warm \T\ dry. normal, Skin temperature is warm. Musculoskeletal: No deficits noted. No signs and/or symptoms reported regarding the musculoskeletal system. 14:03 Reassessment: No changes from previously documented assessment. al5 Vital Signs: 12:52 BP 156 / 81; Pulse 56; Resp 17; Temp 97.4; Pulse Ox 98% ; Weight 92.08 kg; Height 5 ft. ll1 10 in. ; Pain 5/10; 14:01 BP 126 / 74; Pulse 54; Resp 16; Temp 98.3; Pulse Ox 100% ; Pain 4/10; al5 12:52 Body Mass Index 29.13 (92.08 kg, 177.8 cm) ll1 12:52 Pain Scale: Adult ll1 14:01 Pain Scale: Adult al5 Som Coma Score: 14:02 Eye Response: spontaneous(4). Motor Response: obeys commands(6). Verbal Response: al5 oriented(5). Total: 15. Trauma Score (Adult): 14:02 Eye Response: spontaneous(1); Verbal Response: oriented(1); Motor Response: obeys al5 commands(2); Systolic BP: > 89 mm Hg(4); Respiratory Rate: 10 to 29 per min(4); Som Score: 15; Trauma Score: 12 ED Course: 12:40 Patient arrived in ED. im 12:41 Naz Royal PA-C is PHCP. sb4 12:41 Luis Vale DO is Attending Physician. sb4 12:53 Triage completed. ll1 12:54 Arm band placed on Patient placed in an exam room, on a stretcher. ll1 13:24 Abdomen Wo Contrast In Process Unspecified. EDMS 13:[address] In Process Unspecified. EDMS 13:46 Madelaine Corcoran, RN is Primary Nurse. al5 13:49 Patient has correct armband on for positive identification. Bed in low position. Call al5 light in reach. Side rails up X 1. 13:49 O2 via patient o2 sat 100 on room air. al5 13:52 Provided Education on: processes and procedures.. al5 13:52 No provider procedures requiring assistance completed. Patient did not have IV access al5 during this emergency room visit. 14:03 Thermoregulation: warm blanket given to patient. al5 Administered Medications: 13:04 Drug: Hydrocodone-Acetaminophen PO (7.5 mg-325 mg) 1 tabs PO once Route: PO; aa5 13:56 Follow up: Response: No adverse reaction al5 Medication: 14:03 VIS not applicable for this client. al5 Outcome: 13:47 Discharge ordered by MD. sb4 14:03 Patient's length of stay was not longer than 2 hours. al5 14:03 Discharged to home ambulatory, al5 14:03 Condition: good 14:03 Discharge instructions given to patient, Instructed on discharge instructions, follow up and referral plans. medication usage, Demonstrated understanding of instructions, follow-up care, medications, 14:04 Patient left the ED. al5 Signatures: Dispatcher [employer] EDMS Deirdre Sullivan RN RN aa5 Perez Olivas RN RN ll1 Naz Royal PA-C PA-C sb4 Julissa Guzman Madelaine Corcoran, RN RN al5
[2024-01-10 14:22] VITALS: BP 126/74; TEMP 98.3; O2SAT 100
== END 2024-01-10 14:04 | disposition home or self-care (01) ==
LOC: ER 12:37
DX: S20.212A Contusion of left front wall of thorax, initial encounter (principal); W17.89XA Other fall from one level to another, initial encounter
CPT/HCPCS: 71250; 74150; 99285